=== PATIENT | female | born 1995 | race African-American/Black ===

== ENCOUNTER 2017-04-02 17:14 | Inpatient (IN) | payer BC ==
[2017-04-02] MEDS ORDERED: Sodium Chloride 0.9% 2.5 ML Syringe FLUSH PRN (18:19)
[2017-04-02] MEDS ORDERED: Water For Irrigation,Sterile 1,000 ML Container IRR PRN (18:19)
[2017-04-02] MEDS ORDERED: Methylergonovine 0.2 MG/1 ML Amp IM PRN (18:19)
[2017-04-02] MEDS ORDERED: Nalbuphine 10 MG/1 ML Vial IVPUSH PRN (18:19)
[2017-04-02] MEDS ORDERED: Ampicillin 2 GM in Sodium Chloride 0.9% 100 ML IV ONE (18:19)
[2017-04-02] MEDS ORDERED: Misoprostol 200 MCG Tab PO PRN (18:19)
[2017-04-02] MEDS ORDERED: Carboprost Tromethamine 250 MCG/1 ML Amp IM PRN (18:19)
[2017-04-02] MEDS ORDERED: Butorphanol 1 MG/ML SDV IVPUSH PRN (18:19)
[2017-04-02] MEDS ORDERED: Sodium Chloride 0.9% 10 ML Syringe FLUSH PRN (18:19)
[2017-04-02] MEDS ORDERED: Lidocaine 1% 50 ML MDV INJECT PRN (18:19)
[2017-04-02] MEDS ORDERED: Ampicillin 2 GM AdvVial IV ONE (18:23)
[2017-04-02] MEDS: Lactated Ringers 1,000 ML IV SCH ×3 (18:27→20:12)
[2017-04-02] MEDS ORDERED: Oxytocin/Lactated Ringers 30 UNIT/500 ML BAG IV SCH (18:30)
[2017-04-02] MEDS ORDERED: fentaNYL 100 MCG/2 ML SDV ONE (19:15)
[2017-04-02] MEDS ORDERED: Ropivacaine HCl/PF 100 ML ONE (19:15)
--- NOTE | 2017-04-02 19:27 | PCM.PREANE ---
Preanesthetic Assessment - Anesthesia/Transfusion/Family Hx Anesthesia History: No Prior Anesthesia - Review of Systems General: No Symptoms Pulmonary: No Symptoms Cardiovascular: No Symptoms Gastrointestinal: No symptoms Neurological: No Symptoms Other: Reports: None - Physical Assessment Height: 5 ft 4.5 in Weight: 74.661 kg ASA Class: 2 Mental Status: Alert & Oriented x3 Airway Class: Mallampati = 2 Dentition: Reports: Normal Dentition Thyro-Mental Finger Breadths: 3 Mouth Opening Finger Breadths: 3 ROM/Head Extension: Full Lungs: Clear to auscultation, Normal respiratory effort Cardiovascular: Regular Rate, Regular Rhythm - Lab Values: Laboratory Last Values WBC 6.58 K/uL (4.0-11.0) 04/02/17 18:13 RBC 4.31 M/uL (4.30-5.90) 04/02/17 18:13 Hgb 9.8 g/dL (12.0-16.0) L 04/02/17 18:13 Hct 29.3 % (36.0-46.0) L 04/02/17 18:13 MCV 68.0 fL (80.0-98.0) L 04/02/17 18:13 MCH 22.7 pg (27.0-32.0) L 04/02/17 18:13 MCHC 33.4 g/dL (31.0-37.0) 04/02/17 18:13 RDW Std Deviation 39.0 fl (28.0-62.0) 04/02/17 18:13 RDW Coeff of Carola 16 % (11.0-15.0) H 04/02/17 18:13 Plt Count 210 K/uL (150-400) 04/02/17 18:13 MPV 10.40 fL (7.40-12.00) 04/02/17 18:13 Nucleated RBC % 0.0 /100WBC 04/02/17 18:13 Nucleated RBCs # 0 K/uL 04/02/17 18:13 Membrane Rupture POSITIVE 04/02/17 17:37 Blood Type O POSITIVE 04/02/17 18:13 Antibody Screen NEGATIVE 04/02/17 18:13 - Allergies Allergies/Adverse Reactions: Allergies Allergy/AdvReac Type Severity Reaction Status Date / Time No Known Allergies Allergy Verified 04/02/17 17:23 - Acknowledgements Anesthesia Type Planned: Epidural Pt an Appropriate Candidate for the Planned Anesthesia: Yes Alternatives and Risks of Anesthesia Discussed w Pt/Guardian: Yes Pt/Guardian Understands and Agrees with Anesthesia Plan: Yes PreAnesthesia Questionnaire HEENT History: Reports: None Cardiovascular History: Reports: None Respiratory History: Reports: None Gastrointestinal History: Reports: GERD Genitourinary History: Reports: None 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 Para: 0 LMP (Approximate): Musculoskeletal History: Reports: None Neurological History: Reports: None Psychiatric History: Reports: None Endocrine/Metabolic History: Reports: None Hematologic History: Reports: Anemia Immunologic History: Reports: None Oncologic (Cancer) History: Reports: None Dermatologic History: Reports: None - Infectious Disease History Infectious Disease History: Reports: None - CURRENT (IN HOUSE) MEDS Current Meds: Current Medications Butorphanol Tartrate (Stadol) 1 mg IVPUSH Q1H PRN PRN Reason: Pain Carboprost Tromethamine (Hemabate Ds) 250 mcg IM ASDIRECTED PRN PRN Reason: Post Hemorrhage Lactated Ringer's (Ringers, Lactated) 1,000 mls @ 150 mls/hr IV ASDIRECTED JESENIA Last Admin: 04/02/17 19:07 Dose: 150 mls/hr Ampicillin Sodium 1 gm/ Sodium (Chloride) 50 mls @ 100 mls/hr IV Q4H JESENIA Lidocaine HCl (Xylocaine 1%) 50 ml INJECT .ONCE PRN PRN Reason: Laceration repair Methylergonovine Maleate (Methergine) 0.2 mg IM ASDIRECTED PRN PRN Reason: Post Hemorrhage Misoprostol (Cytotec) 200 mcg PO .ONCE PRN PRN Reason: Post Hemorrhage Nalbuphine HCl (Nubain) 10 mg IVPUSH Q1H PRN PRN Reason: Pain (severe 7-10) Stop: 04/02/17 20:20 Sodium Chloride (Saline Flush) 10 ml FLUSH ASDIRECTED PRN PRN Reason: Keep Vein Open Sodium Chloride (Saline Flush) 2.5 ml FLUSH ASDIRECTED PRN PRN Reason: Keep Vein Open Sterile Water (Sterile Water For Irrigation) 1,000 ml IRR ASDIRECTED PRN PRN Reason: delivery Discontinued Medications Ampicillin Sodium (Ampicillin) Confirm Administered Dose 2 gm IV .STK-MED ONE Stop: 04/02/17 18:24 Fentanyl (Sublimaze) Confirm Administered Dose 100 mcg .ROUTE .STK-MED ONE Stop: 04/02/17 19:16 Ampicillin Sodium 2 gm/ Sodium (Chloride) 100 mls @ 200 mls/hr IV ONETIME ONE Stop: 04/02/17 18:48 Last Admin: 04/02/17 18:27 Dose: 200 mls/hr Oxytocin/Lactated Ringer's (Pitocin In Lr 30 Units/500 Ml) 30 unit in 500 mls @ 999 mls/hr IV ASDIRECTED [facility] PRN Reason: 999 MUNITS/MIN Stop: 04/02/17 19:01 Ropivacaine (Naropin 0.2%) Confirm Administered Dose 100 mls @ as directed .ROUTE .STK-MED ONE Stop: 04/02/17 19:16
[2017-04-02] MEDS ORDERED: Ampicillin 1 GM in Sodium Chloride 0.9% 50 ML IV SCH (22:30)
[2017-04-03] MEDS ORDERED: Oxytocin/Lactated Ringers 30 UNIT/500 ML BAG ONE (00:12)
[2017-04-03] MEDS ORDERED: Acetaminophen 500 MG Tab PO PRN (00:55)
[2017-04-03] MEDS ORDERED: Ibuprofen 400 MG Tab PO PRN (00:55)
[2017-04-03] MEDS ORDERED: Simethicone 80 MG Tab.Chew PO PRN (00:55)
[2017-04-03] MEDS ORDERED: Bisacodyl 10 MG Supp RECTAL PRN (00:55)
[2017-04-03] MEDS ORDERED: Lanolin 100% Cream 7 GM Tube TOP PRN (00:55)
[2017-04-03] MEDS ORDERED: Aluminum Hydroxide/Magnesium Hydroxide/Simethicone Susp 30 ML Cup PO PRN (00:55)
[2017-04-03] MEDS ORDERED: Docusate Sodium 100 MG Cap PO PRN (00:55)
[2017-04-03] MEDS ORDERED: Benzocaine/Menthol 20%-0.5% Spray 78 GM Cannister TOP PRN (00:55)
[2017-04-03] MEDS ORDERED: Witch Hazel Medicated Pads 40/Jar TOP PRN (00:55)
--- NOTE | 2017-04-03 02:28 | OR ---
SURGEON: Radha Sorto M.D. DATE OF PROCEDURE: 04/03/2017 PREOPERATIVE DIAGNOSES: 1. A 39 and 1-week intrauterine . 2. Active labor and spontaneous rupture of membranes. 3. Group B beta strep positive. POSTOPERATIVE DIAGNOSES: 1. A 39 and 1-week intrauterine . 2. Active labor and spontaneous rupture of membranes. 3. Group B beta strep positive. PROCEDURES PERFORMED: Spontaneous vaginal delivery. Second-degree midline laceration was repaired. ANESTHESIA: Epidural. ESTIMATED BLOOD LOSS: 300 mL. FINDINGS: Term female. Apgars of nine at 1 minute and nine at 5 minutes. Weight is pending. Spontaneous delivery of intact placenta and three-vessel cord. DISPOSITION: to [facility] and Mom in [facility], stable. PROCEDURE DETAILS: Mehdi is a 21-year-old, G1, P0, at 39 weeks' gestation. She was admitted on the evening of 04/02/2017 with contractions since the evening before they became much more intense in nature, and spontaneous leakage of fluid shortly after 3 p.m. Upon her presentation, she was found to be 8 cm to 9 cm dilated, 90% effaced, and -1 station. Therefore, she was admitted. Routine labs were drawn. Ampicillin prophylaxis was initiated. heart tones were 120s with variability, Yasir is 3200 g in cephalic presentation. The patient is requesting regional anesthesia in the form of epidural anesthesia, this has been consulted. The patient underwent regional anesthesia satisfactorily, became more comfortable, and progressed to complete. She was allowed to labor, and then when began feeling pressure, began pushing efforts. There were some early decelerations with occasional variable decelerations with the pushing efforts, which were alleviated to a degree with positional changes with pushing. She was able to push to a +4 station. Upon my arrival, the patient was placed in a modified dorsal lithotomy position, and prepped and draped in the usual aseptic manner. With continued pushing efforts and pushing satisfactorily to a +5 station, she was able to deliver the infant's head atraumatically and spontaneously, followed by anterior shoulder, posterior shoulder, and remainder of body without difficulty. Body cord x1 was reduced manually. The was delivered in direct OP position. The infant's oropharynx and nares were bulb suctioned. Cord was clamped x2 and cut. Infant was handed off to her mother with attending and Nursing staff at her side. Cord arterial, cord venous, and cord blood sampling were obtained. Light suprapubic pressure was applied while the placenta was delivered spontaneously intact. Vigorous fundal uterine massage was then applied while 30 units of Pitocin was delivered in 500 mL of IV fluid. Upon inspection of the cervix, vaginal sidewalls, and perineum, there was found to be a second-degree midline laceration present. This was repaired using 3-0 Vicryl in the usual fashion. Hemostasis remained evident. Uterus remained firm. Sponge count and needle counts were correct. The patient will remain in [facility] and in [facility]. FABI / JENNY /[id number]
--- NOTE | 2017-04-03 07:42 | PCM48HPAN ---
Post Anesthesia Note - EVALUATION WITHIN 48HRS OF ANESTHETIC Vital Signs in Normal Range: Yes Patient Participated in Evaluation: Yes Respiratory Function Stable: Yes Airway Patent: Yes Cardiovascular Function Stable: Yes Hydration Status Stable: Yes Pain Control Satisfactory: Yes Nausea and Vomiting Control Satisfactory: Yes Mental Status Recovered: Yes
[2017-04-03] MEDS: oxyCODONE 5 MG Tab PO PRN ×3 (09:08→23:00)
[2017-04-03] MEDS: Acetaminophen 500 MG Tab PO PRN ×2 (09:08→14:31)
--- NOTE | 2017-04-03 09:50 | PCM.PNPP ---
- General Info Date of Service: 04/03/17 Subjective Update: Patient is doing well overall--ambulating, voiding, lochia is appropriate. Denies lightheadedness. Pain controlled overall. . Functional Status: Reports: pain controlled, tolerating diet, ambulating, urinating - Review of Systems General: Denies: Fever, Weakness Cardiovascular: Denies: Chest Pain, Palpitations, Lightheadedness Gastrointestinal: Reports: Flatus. Denies: Nausea, Vomiting Genitourinary: Denies: flank pain Psychiatric: Reports: no symptoms - General Info Date of Service: 04/03/17 - Patient Data Vital Signs - most recent: Last Vital Signs Temp 36.9 C 04/03/17 04:00 Pulse 93 04/03/17 04:00 Resp 16 04/03/17 04:00 BP 91/47 L 04/03/17 04:00 Pulse Ox 96 04/03/17 04:00 Weight - most recent: 74.661 kg Lab Results - last 24 hrs: Laboratory Results - last 24 hr 04/02/17 04/02/17 04/02/17 Range/Units 17:37 18:13 18:13 WBC 6.58 (4.0-11.0) K/uL RBC 4.31 (4.30-5.90) M/uL Hgb 9.8 L (12.0-16.0) g/dL Hct 29.3 L (36.0-46.0) % MCV 68.0 L (80.0-98.0) fL MCH 22.7 L (27.0-32.0) pg MCHC 33.4 (31.0-37.0) g/dL RDW Std Deviation 39.0 (28.0-62.0) fl RDW Coeff of Carola 16 H (11.0-15.0) % Plt Count 210 (150-400) K/uL MPV 10.40 (7.40-12.00) fL Nucleated RBC % 0.0 /100WBC Nucleated RBCs # 0 K/uL Membrane Rupture POSITIVE Blood Type O POSITIVE Antibody Screen NEGATIVE Med Orders - Current: Current Medications Acetaminophen (Tylenol Extra Strength) 500 mg PO Q4H PRN PRN Reason: Pain Acetaminophen (Tylenol Extra Strength) 1,000 mg PO Q4H PRN PRN Reason: Pain Last Admin: 04/03/17 09:08 Dose: 1,000 mg Al Hydroxide/Mg Hydroxide (Mag-Al Plus) 30 ml PO Q8H PRN PRN Reason: Heartburn Benzocaine/Menthol (Dermoplast Pain Relief 20%-0.5% [address]) 78 gm TOP ASDIRECTED PRN PRN Reason: Perineal Comfort Measure Bisacodyl (Dulcolax) 10 mg RECTAL .ONCE PRN PRN Reason: Constipation Docusate Sodium (Colace) 100 mg PO BID PRN PRN Reason: Constipation Emollient Ointment (Lansinoh Hpa) 0 gm TOP ASDIRECTED PRN PRN Reason: Sore Nipples Lactated Ringer's (Ringers, Lactated) 1,000 mls @ 150 mls/hr IV ASDIRECTED JESENIA Last Admin: 04/02/17 20:12 Dose: 150 mls/hr Ibuprofen (Motrin) 400 mg PO Q4H PRN PRN Reason: Pain Ibuprofen (Motrin) 800 mg PO Q6H PRN PRN Reason: Pain Methylergonovine Maleate (Methergine) 0.2 mg IM ASDIRECTED PRN PRN Reason: Post Hemorrhage Misoprostol (Cytotec) 200 mcg PO .ONCE PRN PRN Reason: Post Hemorrhage Oxycodone HCl (Oxycodone) 5 mg PO Q2H PRN PRN Reason: Pain Last Admin: 04/03/17 09:08 Dose: 5 mg Simethicone (Simethicone) 80 mg PO Q4H PRN PRN Reason: Gas Sodium Chloride (Saline Flush) 2.5 ml FLUSH ASDIRECTED PRN PRN Reason: Keep Vein Open Witch Michelle (Tucks) 1 pad TOP ASDIRECTED PRN PRN Reason: comfort care Last Admin: 04/03/17 03:00 Dose: 1 pad Discontinued Medications Ampicillin Sodium (Ampicillin) Confirm Administered Dose 2 gm IV .STK-MED ONE Stop: 04/02/17 18:24 Last Admin: 04/03/17 03:25 Dose: Not Given Butorphanol Tartrate (Stadol) 1 mg IVPUSH Q1H PRN PRN Reason: Pain Carboprost Tromethamine (Hemabate Ds) 250 mcg IM ASDIRECTED PRN PRN Reason: Post Hemorrhage Fentanyl (Sublimaze) Confirm Administered Dose 100 mcg .ROUTE .STK-MED ONE Stop: 04/02/17 19:16 Ampicillin Sodium 2 gm/ Sodium (Chloride) 100 mls @ 200 mls/hr IV ONETIME ONE Stop: 04/02/17 18:48 Last Admin: 04/02/17 18:27 Dose: 200 mls/hr Oxytocin/Lactated Ringer's (Pitocin In Lr 30 Units/500 Ml) 30 unit in 500 mls @ 999 mls/hr IV ASDIRECTED JESENIA PRN Reason: 999 MUNITS/MIN Stop: 04/02/17 19:01 Last Admin: 04/03/17 00:45 Dose: 999 munits/min, 999 mls/hr Ampicillin Sodium 1 gm/ Sodium (Chloride) 50 mls @ 100 mls/hr IV Q4H [facility] Last Admin: 04/02/17 22:45 Dose: 100 mls/hr Ropivacaine (Naropin 0.2%) Confirm Administered Dose 100 mls @ as directed .ROUTE .STK-MED ONE Stop: 04/02/17 19:16 Oxytocin/Lactated Ringer's (Pitocin In Lr 30 Units/500 Ml) Confirm Administered Dose 30 unit in 500 mls @ as directed .ROUTE .STK-MED ONE Stop: 04/03/17 00:13 Last Admin: 04/03/17 03:26 Dose: Not Given Lidocaine HCl (Xylocaine 1%) 50 ml INJECT .ONCE PRN PRN Reason: Laceration repair Nalbuphine HCl (Nubain) 10 mg IVPUSH Q1H PRN PRN Reason: Pain (severe 7-10) Stop: 04/02/17 20:20 Sodium Chloride (Saline Flush) 10 ml FLUSH ASDIRECTED PRN PRN Reason: Keep Vein Open Sterile Water (Sterile Water For Irrigation) 1,000 ml IRR ASDIRECTED PRN PRN Reason: delivery Last Admin: 04/03/17 00:15 Dose: 1,000 ml - Infant Interaction Infant Disposition, : in Room with Family Interaction: Holding Infant Feeding: Breastfed ; Nursed Well Support Person: Significant Other - Recovery Exam Fundal Tone: Firm Fundal Level: At Umbilicus Fundal Placement: Midline Lochia Amount: Scant Lochia Color: Rubra/Red Perineum Description: Intact, Minimal Bruising/Swelling Episiotomy/Laceration: Approximated Bladder Status: Nonpalpable Urinary Elimination: Voided - Exam General: alert, oriented Lungs: Normal respiratory effort Cardiovascular: Regular Rate, Regular Rhythm Abdomen: bowel sounds present, soft. No: CVA tenderness Extremities: no calf tenderness Psy/Mental Status: alert, normal affect - Problem List & Annotations (1) Vaginal delivery SNOMED Code(s): 820787133 Code(s): O80 - ENCOUNTER FOR FULL-TERM UNCOMPLICATED DELIVERY Status: Acute Current Visit: Yes - Problem List Review Problem List Initiated/Reviewed/Updated: Yes - My Orders Last 24 Hours: My Active Orders 04/02/17 18:19 Patient Status [ADT] Routine Heart Tones [RC] CONTINUOUS Vaginal Exam [RC] PRN Vital Signs [RC] PER UNIT ROUTINE Methylergonovine [Methergine] 0.2 mg IM ASDIRECTED PRN Misoprostol [Cytotec] 200 mcg PO .ONCE PRN Sodium Chloride 0.9% [Saline Flush] 2.5 ml FLUSH ASDIRECTED PRN Peripheral IV Insertion Adult [OM.PC] Routine Resuscitation Status Routine 04/02/17 18:30 Lactated Ringers [Ringers, Lactated] 1,000 ml IV ASDIRECTED 04/03/17 00:55 Patient Status [ADT] Routine May Shower [RC] ASDIRECTED Up ad Ruth [RC] ASDIRECTED Vital Signs [RC] PER UNIT ROUTINE Acetaminophen [Tylenol Extra Strength] 1,000 mg PO Q4H PRN Acetaminophen [Tylenol Extra Strength] 500 mg PO Q4H PRN Alum Hydrox/Mag Hydrox/Simeth [Mag-Al Plus] 30 ml PO Q8H PRN Benzocaine/Menthol [Dermoplast Pain Relief 20%-0.5% [address]] 78 gm TOP ASDIRECTED PRN Bisacodyl [Dulcolax] 10 mg RECTAL .ONCE PRN Docusate Sodium [Colace] 100 mg PO BID PRN Ibuprofen [Motrin] 400 mg PO Q4H PRN Ibuprofen [Motrin] 800 mg PO Q6H PRN Lanolin [Lansinoh HPA] See Dose Instructions TOP ASDIRECTED PRN Simethicone 80 mg PO Q4H PRN Witch Michelle [Tucks] 1 pad TOP ASDIRECTED PRN oxyCODONE 5 mg PO Q2H PRN Assess Lochia [WOMSER] Per Unit Routine Assess Uterine Involution [WOMSER] Per Unit Routine Peripheral IV Discontinue [OM.PC] Routine 04/03/17 00:56 Ice Therapy [OM.PC] Per Unit Routine Perineal Care [OM.PC] Per Unit Routine Sitz Bath [OM.PC] Per Unit Routine 04/03/17 12:11 HEMOGLOBIN/HEMATOCRIT,HH [HEME] Timed 04/03/17 Breakfast Regular Diet [DIET] - Assessment Assessment:: PPD 1 status post /2nd MLL repaired - Plan Plan:: Patient is stable and doing well overall--continue to work with . Continue cares.
[2017-04-03] MEDS: Ibuprofen 800 MG Tab PO PRN (23:02)
[2017-04-04] MEDS: Ibuprofen 800 MG Tab PO PRN (07:37)
[2017-04-04 07:42] VITALS: BP 103/72
--- NOTE | 2017-04-04 09:07 | PCM.PNPP ---
- General Info Date of Service: 04/04/17 Functional Status: Reports: pain controlled, tolerating diet, ambulating, urinating - Review of Systems General: Denies: Fever, Weakness, Fatigue, Malaise, Chills Pulmonary: Denies: shortness of breath, pleuritic chest pain, cough Cardiovascular: Denies: Chest Pain, Palpitations, Dyspnea on Exertion Gastrointestinal: Denies: Abdominal pain Genitourinary: Denies: dysuria, burning, incontinence Neurological: Denies: Headache Psychiatric: Denies: confusion, depression, mood lability - General Info Date of Service: 04/04/17 - Patient Data Vital Signs - most recent: Last Vital Signs Temp 36.6 C 04/04/17 07:00 Pulse 75 04/04/17 07:00 Resp 16 04/04/17 07:00 BP 103/72 04/04/17 07:00 Pulse Ox 98 04/04/17 07:00 Weight - most recent: 164 lb 9.6 oz Lab Results - last 24 hrs: Laboratory Results - last 24 hr 04/03/17 Range/Units 12:26 Hgb 9.5 L (12.0-16.0) g/dL Hct 28.3 L (36.0-46.0) % Med Orders - Current: Current Medications Acetaminophen (Tylenol Extra Strength) 500 mg PO Q4H PRN PRN Reason: Pain Acetaminophen (Tylenol Extra Strength) 1,000 mg PO Q4H PRN PRN Reason: Pain Last Admin: 04/03/17 14:31 Dose: 1,000 mg Al Hydroxide/Mg Hydroxide (Mag-Al Plus) 30 ml PO Q8H PRN PRN Reason: Heartburn Benzocaine/Menthol (Dermoplast Pain Relief 20%-0.5% [place]) 78 gm TOP ASDIRECTED PRN PRN Reason: Perineal Comfort Measure Bisacodyl (Dulcolax) 10 mg RECTAL .ONCE PRN PRN Reason: Constipation Docusate Sodium (Colace) 100 mg PO BID PRN PRN Reason: Constipation Emollient Ointment (Lansinoh Hpa) 0 gm TOP ASDIRECTED PRN PRN Reason: Sore Nipples Last Admin: 04/03/17 20:37 Dose: 7 gm Lactated Ringer's (Ringers, Lactated) 1,000 mls @ 150 mls/hr IV ASDIRECTED JESENIA Last Admin: 04/02/17 20:12 Dose: 150 mls/hr Ibuprofen (Motrin) 400 mg PO Q4H PRN PRN Reason: Pain Ibuprofen (Motrin) 800 mg PO Q6H PRN PRN Reason: Pain Last Admin: 04/04/17 07:37 Dose: 800 mg Methylergonovine Maleate (Methergine) 0.2 mg IM ASDIRECTED PRN PRN Reason: Post Hemorrhage Misoprostol (Cytotec) 200 mcg PO .ONCE PRN PRN Reason: Post Hemorrhage Oxycodone HCl (Oxycodone) 5 mg PO Q2H PRN PRN Reason: Pain Last Admin: 04/03/17 23:00 Dose: 5 mg Simethicone (Simethicone) 80 mg PO Q4H PRN PRN Reason: Gas Sodium Chloride (Saline Flush) 2.5 ml FLUSH ASDIRECTED PRN PRN Reason: Keep Vein Open Witch Michelle (Tucks) 1 pad TOP ASDIRECTED PRN PRN Reason: comfort care Last Admin: 04/03/17 03:00 Dose: 1 pad Discontinued Medications Ampicillin Sodium (Ampicillin) Confirm Administered Dose 2 gm IV .STK-MED ONE Stop: 04/02/17 18:24 Last Admin: 04/03/17 03:25 Dose: Not Given Butorphanol Tartrate (Stadol) 1 mg IVPUSH Q1H PRN PRN Reason: Pain Carboprost Tromethamine (Hemabate Ds) 250 mcg IM ASDIRECTED PRN PRN Reason: Post Hemorrhage Fentanyl (Sublimaze) Confirm Administered Dose 100 mcg .ROUTE .STK-MED ONE Stop: 04/02/17 19:16 Ampicillin Sodium 2 gm/ Sodium (Chloride) 100 mls @ 200 mls/hr IV ONETIME ONE Stop: 04/02/17 18:48 Last Admin: 04/02/17 18:27 Dose: 200 mls/hr Oxytocin/Lactated Ringer's (Pitocin In Lr 30 Units/500 Ml) 30 unit in 500 mls @ 999 mls/hr IV ASDIRECTED JESENIA PRN Reason: 999 MUNITS/MIN Stop: 04/02/17 19:01 Last Admin: 04/03/17 00:45 Dose: 999 munits/min, 999 mls/hr Ampicillin Sodium 1 gm/ Sodium (Chloride) 50 mls @ 100 mls/hr IV Q4H [facility] Last Admin: 04/02/17 22:45 Dose: 100 mls/hr Ropivacaine (Naropin 0.2%) Confirm Administered Dose 100 mls @ as directed .ROUTE .STK-MED ONE Stop: 04/02/17 19:16 Oxytocin/Lactated Ringer's (Pitocin In Lr 30 Units/500 Ml) Confirm Administered Dose 30 unit in 500 mls @ as directed .ROUTE .STK-MED ONE Stop: 04/03/17 00:13 Last Admin: 04/03/17 03:26 Dose: Not Given Lidocaine HCl (Xylocaine 1%) 50 ml INJECT .ONCE PRN PRN Reason: Laceration repair Nalbuphine HCl (Nubain) 10 mg IVPUSH Q1H PRN PRN Reason: Pain (severe 7-10) Stop: 04/02/17 20:20 Sodium Chloride (Saline Flush) 10 ml FLUSH ASDIRECTED PRN PRN Reason: Keep Vein Open Sterile Water (Sterile Water For Irrigation) 1,000 ml IRR ASDIRECTED PRN PRN Reason: delivery Last Admin: 04/03/17 00:15 Dose: 1,000 ml - Infant Interaction Disposition, : in Room with Family Interaction: Holding Infant Infant Feeding: Breastfed ; Nursed Well Support Person: Significant Other - Recovery Exam Fundal Tone: Firm Fundal Level: At Umbilicus Fundal Placement: Midline Lochia Amount: Small Lochia Color: Rubra/Red Perineum Description: Intact, Minimal Bruising/Swelling Episiotomy/Laceration: Approximated Bladder Status: Voiding Urinary Elimination: Voided - Exam General: alert, oriented HEENT: Pupils equal Lungs: Clear to auscultation, Normal respiratory effort Cardiovascular: Regular Rate, Regular Rhythm Abdomen: bowel sounds present, soft, no tenderness, no distension Extremities: no calf tenderness, edema Psy/Mental Status: alert, normal affect, normal mood - Problem List & Annotations (1) Vaginal delivery SNOMED Code(s): 285433328 Code(s): O80 - ENCOUNTER FOR FULL-TERM UNCOMPLICATED DELIVERY Status: Acute Current Visit: Yes - Problem List Review Problem List Initiated/Reviewed/Updated: Yes - Assessment Assessment:: PPD 1 status post /2nd MLL repaired Patient doing well and ready fro discharge today - Plan Plan:: Discharge instructions reviewed Nothing in the vagina for 6 weeks Continue PNV Bleeding and infections precautions reviewed Follow up in 6 weeks
== END 2017-04-04 12:15 | disposition home or self-care (01) | DRG 560 ==
LOC: MW.OBCHECK 17:14 → MW.OB 17:27 → MW.OBCHECK 18:19 → OBSVTOIN 04-03 00:38 → MW.OB 04-03 03:00
PROVIDERS: ADMIT Obstetrics & Gynecology; ATTEND Obstetrics & Gynecology
PROC: 10E0XZZ Delivery of Products of Conception, External Approach (ICD-10-PCS; principal; 2017-04-03)
PROC: 0KQM0ZZ Repair Perineum Muscle, Open Approach (ICD-10-PCS; 2017-04-03)
DX: O70.1 Second degree perineal laceration during delivery (principal); Z3A.39 39 weeks gestation of pregnancy; Z37.0 Single live birth; Z22.330 Carrier of Group B streptococcus
CPT/HCPCS: 01967; 36415; 59025; 84112; 85014; 85018; 85027; 86850; 86900; 86901; A9270-GY; J0290; J2795; J3010; J7030; J7050; J7120

== ENCOUNTER 2020-04-17 23:30 | Emergency (ER) | payer OTHER, BC ==
--- NOTE | 2020-04-18 00:42 | EDM.PDOC ---
ED HPI GENERAL MEDICAL PROBLEM - General Chief Complaint: General Stated Complaint: LOWER BACK PAIN Time Seen by Provider: 04/17/20 23:39 Abdominal Pain Score (Numeric/FACES): 9 - Related Data Allergies Allergy/AdvReac Type Severity Reaction Status Date / Time No Known Allergies Allergy Verified 04/17/20 23:42 Home Meds: Home Meds . 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: Musculoskeletal History: Reports: None Neurological History: Reports: None Psychiatric History: Reports: None Endocrine/Metabolic History: Reports: None Hematologic History: Reports: Anemia Immunologic History: Reports: None Oncologic (Cancer) History: Reports: None Dermatologic History: Reports: None - Infectious Disease History Infectious Disease History: Reports: None Social & Family History - Family History Family Medical History: Noncontributory - Tobacco Use Smoking Status *Q: Never Smoker Second Hand Smoke Exposure: No - Caffeine Use Caffeine Use: Reports: None - Recreational Drug Use Recreational Drug Use: No ED ROS GENERAL - Review of Systems Review Of Systems: See Below ED EXAM, GENERAL - Physical Exam Exam: See Below Course - Vital Signs Last Recorded V/S: Last Vital Signs Temp 98.1 F 04/17/20 23:39 Pulse 90 04/17/20 23:39 Resp 18 04/17/20 23:39 BP 120/76 04/17/20 23:39 Pulse Ox 99 04/17/20 23:39 - Orders/Labs/Meds Orders: Active Orders 24 hr Category Date Time Status POCTesting [POC Labs] [RC] ASDIRECTED Care 04/17/20 23:46 Inactive KUB [Abdomen 1V Flat] [CR] Stat Exams 04/18/20 00:40 Ordered Labs: Laboratory Tests 04/17/20 04/17/20 04/17/20 Range/Units 23:45 23:45 23:58 WBC 6.67 (4.0-11.0) K/uL RBC 4.97 (4.30-5.90) M/uL Hgb 12.9 (12.0-16.0) g/dL Hct 37.5 (36.0-46.0) % MCV 75.5 L (80.0-98.0) fL MCH 26.0 L (27.0-32.0) pg MCHC 34.4 (31.0-37.0) g/dL RDW Std Deviation 35.3 (28.0-62.0) fl RDW Coeff of Carola 13 (11.0-15.0) % Plt Count 292 (150-400) K/uL MPV 9.20 (7.40-12.00) fL Neut % (Auto) 44.9 L (48.0-80.0) % Lymph % (Auto) 42.9 H (16.0-40.0) % [place] % (Auto) 6.7 (0.0-15.0) % Eos % (Auto) 4.6 (0.0-7.0) % Baso % (Auto) 0.9 (0.0-1.5) % Neut # (Auto) 3.0 (1.4-5.7) K/uL Lymph # (Auto) 2.9 H (0.6-2.4) K/uL [place] # (Auto) 0.5 (0.0-0.8) K/uL Eos # (Auto) 0.3 (0.0-0.7) K/uL Baso # (Auto) 0.1 (0.0-0.1) K/uL Nucleated RBC % 0.0 /100WBC Nucleated RBCs # 0 K/uL Urine Color YELLOW Urine Appearance CLEAR Urine pH 6.0 (5.0-8.0) Ur Specific [place] 1.015 (1.001-1.035) Urine Protein NEGATIVE (NEGATIVE) mg/dL Urine Glucose (UA) NEGATIVE (NEGATIVE) mg/dL Urine Ketones NEGATIVE (NEGATIVE) mg/dL Urine Occult Blood NEGATIVE (NEGATIVE) Urine Nitrite NEGATIVE (NEGATIVE) Urine Bilirubin NEGATIVE (NEGATIVE) Urine Urobilinogen 0.2 (<2.0) EU/dL Ur Leukocyte Esterase NEGATIVE (NEGATIVE) Urine HCG, Qual NEGATIVE (NEGATIVE) Meds: Medications Discontinued Medications Generic Name Dose Route Start Last Admin Trade Name Freq PRN Reason Stop Dose Admin Naproxen 500 mg 04/18/20 00:44 04/18/20 00:48 Naprosyn PO 04/18/20 00:45 500 mg ONETIME ONE Administration - Re-Assessments/Exams Free Text/Narrative Re-Assessment/Exam: 04/18/20 00:41 80 12:41 AM bimanual exam. Not able to definitively find enough of the string to be sure that the IUD is in position. Uterus is slightly tender adnexa are nontender no masses. KUB ordered for position of the IUD. Departure - Departure Time of Disposition: 00:55 Disposition: Home, Self-Care 01 Clinical Impression: Pelvic pain - Discharge Information Referrals: Bud Spring MD [Primary Care Provider] - Forms: ED Department Discharge Additional Instructions: The following information is given to patients seen in the emergency department who are being discharged to home. This information is to outline your options for follow-up care. We provide all patients seen in our emergency department with a follow-up referral. The need for follow-up, as well as the timing and circumstances, are variable depending upon the specifics of your emergency department visit. If you don't have a primary care physician on staff, we will provide you with a referral. We always advise you to contact your personal physician following an emergency department visit to inform them of the circumstance of the visit and for follow-up with them and/or the need for any referrals to a consulting specialist. The emergency department will also refer you to a specialist when appropriate. This referral assures that you have the opportunity for follow-up care with a specialist. All of these measure are taken in an effort to provide you with optimal care, which includes your follow-up. Under all circumstances we always encourage you to contact your private physician who remains a resource for coordinating your care. When calling for follow-up care, please make the office aware that this follow-up is from your recent emergency room visit. If for any reason you are refused follow-up, please contact the [facility] Emergency Department at and asked to speak to the emergency department charge nurse. Sepsis Event Note - Evaluation Sepsis Screening Result: No Definite Risk - Focused Exam Vital Signs: Vital Signs Temp Pulse Resp BP Pulse Ox 04/17/20 23:39 98.1 F 90 18 120/76 99 Date Exam was Performed: 04/18/20 Time Exam was Performed: 00:55 - My Orders Last 24 Hours: My Active Orders 04/17/20 23:46 POCTesting [POC Labs] [RC] ASDIRECTED 04/18/20 00:40 KUB [Abdomen 1V Flat] [CR] Stat - Assessment/Plan Last 24 Hours: My Active Orders 04/17/20 23:46 POCTesting [POC Labs] [RC] ASDIRECTED 04/18/20 00:40 KUB [Abdomen 1V Flat] [CR] Stat
[2020-04-18] MEDS ORDERED: Naproxen 500 MG Tab PO ONE (00:44)
[2020-04-18 01:07] VITALS: BP 123/77; PULSE 97
--- NOTE | 2020-04-18 01:13 | CR ---
INDICATION: Pain with IUD TECHNIQUE: Abdomen 1 view. COMPARISON: None FINDINGS: Bowel: Bowel pattern is normal. Soft tissues: No sign of free air. No sign of soft tissue mass. No suspicious calcifications. IUD projects over the mid pelvis. Bones: Unremarkable for age. IMPRESSION: Unremarkable abdomen. IUD projects over the mid abdomen. Dictated by Gavin Alba MD @ 04/18/2020 1:12:12 AM Dictated by: Gavin Alba MD @ 04/18/2020 01:12:15 (Electronically Signed)
== END 2020-04-18 01:07 | disposition home or self-care (01) ==
LOC: MW.ED 23:30
DX: R10.2 Pelvic and perineal pain (principal)
CPT/HCPCS: 36415; 74018; 81003; 81025; 85025; 99284; A9270; 99283

== ENCOUNTER 2021-11-18 01:54 | Inpatient (IN) | payer BC ==
--- NOTE | 2021-11-18 02:03 | PCM.LDHP ---
L&D History of Present Illness - General Date of Service: 11/18/21 Admit Problem/Dx: Admission Diagnosis/Problem Admission Diagnosis/Problem - History of Present Illness Introduction:: 26yo at 38w4d EMILI 11/28/2020 by LMP confirmed with 8 week 6 day US presenting with rupture of membranes. Patient had care with [facility]. Patient reports having a large gush of clear fluid around 0122 tonight, having regular contraction every 1-3min as well. She is GBS negative. was otherwise uncomplicated. - Related Data Allergies/Adverse Reactions: Allergies Allergy/AdvReac Type Severity Reaction Status Date / Time No Known Allergies Allergy Verified 04/17/20 23:42 Home Medications: Home Meds . 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: Musculoskeletal History: Reports: None Neurological History: Reports: None Psychiatric History: Reports: None Endocrine/Metabolic History: Reports: None Hematologic History: Reports: Anemia Immunologic History: Reports: None Oncologic (Cancer) History: Reports: None Dermatologic History: Reports: None - Infectious Disease History Infectious Disease History: Reports: None Social & Family History - Family History Family Medical History: No Pertinent Family History - Caffeine Use Caffeine Use: Reports: None H&P Review of Systems - Review of Systems: Review Of Systems: See Below General: Reports: No Symptoms HEENT: Reports: No Symptoms Pulmonary: Reports: No Symptoms Cardiovascular: Reports: No Symptoms Gastrointestinal: Reports: No Symptoms Genitourinary: Reports: Other (leakage of fluid, contractions) Musculoskeletal: Reports: No Symptoms Skin: Reports: No Symptoms Psychiatric: Reports: No Symptoms Neurological: Reports: No Symptoms Hematologic/Lymphatic: Reports: No Symptoms Immunologic: Reports: No Symptoms L&D Exam - Exam Exam: See Below - OB Specific Contraction Intensity: Moderate Movement: Active Heart Tones: Present Heart Tones per Min: 110 Heart Rate (FHR) Variability: Moderate (6-25 bpm) Presentation: Vertex - Exam General: Alert, Oriented, Cooperative HEENT: Conjunctiva Clear, EACs Clear Neck: Supple, Trachea Midline Lungs: Clear to Auscultation, Normal Respiratory Effort Cardiovascular: Regular Rate, Regular Rhythm GI/Abdominal Exam: Normal Bowel Sounds, Soft, Non-Tender, No Distention Genitourinary: Other (7cm dilated per patient nurse, grossly ruptured with clear fluid) Back Exam: Normal Inspection, Full Range of Motion Extremities: Normal Inspection, Normal Range of Motion, Non-Tender, No Pedal Edema Skin: Warm, Dry, Intact Neurological: Cranial Nerves Intact, Reflexes Equal Bilateral Psychiatric: Alert, Normal Affect, Normal Mood Problem List Initiated/Reviewed/Updated: Yes Assessment/Plan Comment:: 26yo at 38w5d presenting with SROM and active labor. Reassuring maternal and status. - Patient of [facility] - Grossly ruptured with clear fluid at 0122, 7cm dilated. - Will admit to L&D, CBC, T&S, RPR, COVID19 test - O+, rubella immune - GBS negative - Pain meds and epidural PRN Expectant management, will monitor closely
[2021-11-18] MEDS ORDERED: Methylergonovine 0.2 MG/1 ML Amp IM PRN (02:28)
[2021-11-18] MEDS ORDERED: Misoprostol 200 MCG Tab PO PRN (02:28)
[2021-11-18] MEDS ORDERED: Sodium Chloride 0.9% 10 ML Syringe FLUSH PRN (02:28)
[2021-11-18] MEDS ORDERED: Lidocaine 1% 50 ML MDV INJECT PRN (02:28)
[2021-11-18] MEDS ORDERED: Nalbuphine 10 MG/1 ML Vial IVPUSH PRN (02:28)
[2021-11-18] MEDS ORDERED: Butorphanol 1 MG/ML SDV IVPUSH PRN (02:28)
[2021-11-18] MEDS ORDERED: Carboprost Tromethamine 250 MCG/1 ML Amp IM PRN (02:28)
[2021-11-18] MEDS ORDERED: Tranexamic Acid 1,000 MG in Sodium Chloride 0.9% 100 ML IV PRN (02:28)
[2021-11-18] MEDS ORDERED: Sodium Chloride 0.9% 2.5 ML Syringe FLUSH PRN (02:28)
[2021-11-18] MEDS ORDERED: Ondansetron 4 MG/2 ML SDV IVPUSH PRN (02:28)
[2021-11-18] MEDS ORDERED: Water For Irrigation,Sterile 1,000 ML Container IRR PRN (02:28)
[2021-11-18] MEDS ORDERED: Sodium Chloride 0.9% 20 ML SDV IV PRN (02:28)
[2021-11-18] MEDS ORDERED: Lactated Ringers 1,000 ML IV SCH (02:30)
[2021-11-18] MEDS ORDERED: Oxytocin/0.9 % Sodium Chloride 30 UNIT/500 ML BAG IV SCH (02:30)
[2021-11-18] MEDS ORDERED: Ropivacaine HCl/PF 0 ML ONE (03:21)
[2021-11-18] MEDS ORDERED: fentaNYL 100 MCG/2 ML SDV ONE (03:37)
[2021-11-18] MEDS ORDERED: Lidocaine 2% 5 ML SDV ONE (03:37)
[2021-11-18] MEDS ORDERED: Lidocaine 1% 20 ML MDV ONE (03:43)
[2021-11-18] MEDS ORDERED: Ibuprofen 400 MG Tab PO PRN (04:04)
[2021-11-18] MEDS ORDERED: Bisacodyl 10 MG Supp RECTAL PRN (04:04)
[2021-11-18] MEDS ORDERED: oxyCODONE 5 MG Tab PO PRN (04:04)
[2021-11-18] MEDS ORDERED: Lanolin 100% Cream 7 GM Tube TOP PRN (04:04)
[2021-11-18] MEDS ORDERED: Benzocaine/Menthol 20%-0.5% Spray 78 GM Cannister TOP PRN (04:04)
[2021-11-18] MEDS ORDERED: Acetaminophen 500 MG Tab PO PRN ×2 (04:04)
[2021-11-18] MEDS ORDERED: Ibuprofen 800 MG Tab PO PRN (04:04)
[2021-11-18] MEDS ORDERED: Docusate Sodium 100 MG Cap PO PRN (04:04)
[2021-11-18] MEDS ORDERED: Witch Hazel Medicated Pads 40/Jar TOP PRN (04:04)
--- NOTE | 2021-11-18 04:13 | PCM.DEL ---
L & D Note - General Info Date of Service: 11/18/21 - Delivery Note Labor: Spontaneous Delivery Outcome: Livebirth Presentation: Vertex Nuchal Cord: None Anesthesia Type: Epidural, Local Anesthetic: Lidocaine (Xylocaine) 1% Plain Local Anesthetic Volume: Other (7cc) Amniotic Fluid Description: Clear Episiotomy Type: None Laceration: 2nd Degree Suture type: Vicryl Suture size: 3-0 Placenta: Intact, Spontaneous Cord: 3 Vessels Estimated Blood Loss: 300 Resuscitation Needed: No Provider: Rupa Juarez Second Stage Interventions: Reports: Pushing Effectively Delivery Comments (Free Text/Narrative):: 26yo PPD0 s/p uncomplicatd at 38w5d, routine care. - General Info Date of Service: 11/18/21 - Patient Data Weight - Most Recent: 186 lb Lab Results Last 24 Hours: Laboratory Results - last 24 hr 11/18/21 11/18/21 11/18/21 Range/Units 02:15 02:15 02:25 WBC 8.79 (4.0-11.0) K/uL RBC 4.28 L (4.30-5.90) M/uL Hgb 11.0 L (12.0-16.0) g/dL Hct 31.5 L (36.0-46.0) % MCV 73.6 L (80.0-98.0) fL MCH 25.7 L (27.0-32.0) pg MCHC 34.9 (31.0-37.0) g/dL RDW Std Deviation 36.5 (28.0-62.0) fl RDW Coeff of Carola 14 (11.0-15.0) % Plt Count 214 (150-400) K/uL MPV 10.80 (7.40-12.00) fL Nucleated RBC % 0.0 /100WBC Nucleated RBCs # 0 K/uL SARS-CoV-2 RNA (CATIE) NEGATIVE (NEGATIVE) Blood Type O POSITIVE Antibody Screen NEGATIVE Med Orders - Current: Current Medications Acetaminophen (Acetaminophen 500 Mg Tab) 500 mg PO Q4H PRN PRN Reason: Pain (mild 1-3) Acetaminophen (Acetaminophen 500 Mg Tab) 1,000 mg PO Q4H PRN PRN Reason: Pain (mild 1-3) Benzocaine/Menthol (Benzocaine/Menthol 20%-0.5% [place] 78 Gm Cannister) 78 gm TOP ASDIRECTED PRN PRN Reason: Perineal Comfort Measure Bisacodyl (Bisacodyl 10 Mg Supp) 10 mg RECTAL ONETIME PRN PRN Reason: Constipation Docusate Sodium (Docusate Sodium 100 Mg Cap) 100 mg PO Q12H PRN PRN Reason: Constipation Emollient Ointment (Lanolin 100% Cream 7 Gm Tube) 0 gm TOP ASDIRECTED PRN PRN Reason: Sore Nipples Ibuprofen (Ibuprofen 400 Mg Tab) 400 mg PO Q4H PRN PRN Reason: Pain (mild 1-3) Ibuprofen (Ibuprofen 800 Mg Tab) 800 mg PO Q6H PRN PRN Reason: Cramping Oxycodone HCl (Oxycodone 5 Mg Tab) 5 mg PO Q2H PRN PRN Reason: Pain (severe 7-10) Sodium Chloride (Sodium Chloride 0.9% 10 Ml Syringe) 10 ml FLUSH ASDIRECTED PRN PRN Reason: Keep Vein Open Sodium Chloride (Sodium Chloride 0.9% 2.5 Ml Syringe) 2.5 ml FLUSH ASDIRECTED PRN PRN Reason: Keep Vein Open Sodium Chloride (Sodium Chloride 0.9% 20 Ml Sdv) 10 ml IV ASDIRECTED PRN PRN Reason: IV Use Witch Michelle (Witch Michelle Medicated Pads 40/Jar) 1 pad TOP ASDIRECTED PRN PRN Reason: comfort care Discontinued Medications Butorphanol Tartrate (Butorphanol 1 Mg/Ml Sdv) 1 mg IVPUSH Q1H PRN PRN Reason: Pain (severe 7-10) Carboprost Tromethamine (Carboprost Tromethamine 250 Mcg/1 Ml Amp) 250 mcg IM ASDIRECTED PRN PRN Reason: Post Hemorrhage Fentanyl (Fentanyl 100 Mcg/2 Ml Sdv) Confirm Administered Dose 100 mcg .ROUTE .[facility]-MED ONE Stop: 11/18/21 03:38 Oxytocin/Sodium Chloride (Oxytocin 30 Unit In Ns 0.9% 500 Ml Premix) 30 unit in 500 mls @ 500 mls/hr IV TITRATE JESENIA Tranexamic Acid 1,000 mg/ (Sodium Chloride) 110 mls @ 660 mls/hr IV ONETIME PRN PRN Reason: Bleeding Lactated Ringer's (Ringers, Lactated) 1,000 mls @ 150 mls/hr IV ASDIRECTED JESENIA Ropivacaine (Naropin 0.2%) Confirm Administered Dose 100 mls @ as directed .ROUTE .STK-MED ONE Stop: 11/18/21 03:22 Lidocaine (Lidocaine 2% 5 Ml Sdv) Confirm Administered Dose 5 ml .ROUTE .STK-MED ONE Stop: 11/18/21 03:38 Lidocaine HCl (Lidocaine 1% 50 Ml Mdv) 50 ml INJECT ONETIME PRN PRN Reason: Laceration repair Lidocaine HCl (Lidocaine 1% 20 Ml Mdv) Confirm Administered Dose 20 ml .ROUTE .STK-MED ONE Stop: 11/18/21 03:44 Methylergonovine Maleate (Methylergonovine 0.2 Mg/1 Ml Amp) 0.2 mg IM ASDIRECTED PRN PRN Reason: Post Hemorrhage Misoprostol (Misoprostol 200 Mcg Tab) 200 mcg PO ONETIME PRN PRN Reason: Post Hemorrhage Nalbuphine HCl (Nalbuphine 10 Mg/1 Ml Vial) 10 mg IVPUSH Q1H PRN PRN Reason: Pain (severe 7-10) Ondansetron HCl (Ondansetron 4 Mg/2 Ml Sdv) 4 mg IVPUSH Q4H PRN PRN Reason: Nausea/Vomiting Sterile Water (Water For Irrigation,Sterile 1,000 Ml Container) 1,000 ml IRR ASDIRECTED PRN PRN Reason: delivery - Problem List Review Problem List Initiated/Reviewed/Updated: Yes - My Orders Last 24 Hours: My Active Orders 11/18/21 02:15 RPR (SYPHILIS SERO) W/ RFLX [REF] Routine 11/18/21 02:28 Insert Urinary Catheter [OM.PC] Routine Sodium Chloride 0.9% [Normal Saline] 10 ml IV ASDIRECTED PRN Sodium Chloride 0.9% [Saline Flush] 10 ml FLUSH ASDIRECTED PRN Sodium Chloride 0.9% [Saline Flush] 2.5 ml FLUSH ASDIRECTED PRN DVT/VTE Prophylaxis Reflex [OM.PC] Routine Resuscitation Status Routine 11/18/21 02:29 Peripheral IV Insertion Adult [OM.PC] Routine 11/18/21 02:31 Antiembolic Devices [RC] .Routine Urinary Catheter Assessment [RC] ASDIRECTED VTE/DVT Education [RC] PER UNIT ROUTINE 11/18/21 04:04 Acetaminophen [Tylenol Extra Strength] 1,000 mg PO Q4H PRN Acetaminophen [Tylenol Extra Strength] 500 mg PO Q4H PRN Benzocaine/Menthol [Dermoplast Pain Relief 20%-0.5% [place]] 78 gm TOP ASDIRECTED PRN Docusate Sodium [Colace] 100 mg PO Q12H PRN Ibuprofen [Motrin] 400 mg PO Q4H PRN Ibuprofen [Motrin] 800 mg PO Q6H PRN Lanolin [Lansinoh HPA] See Dose Instructions TOP ASDIRECTED PRN bisacodyL [Dulcolax] 10 mg RECTAL ONETIME PRN oxyCODONE 5 mg PO Q2H PRN witch Michelle [Tucks] 1 pad TOP ASDIRECTED PRN 11/18/21 04:05 Patient Status [ADT] Routine May Shower [RC] ASDIRECTED Up ad Ruth [RC] ASDIRECTED Vital Signs [RC] PER UNIT ROUTINE Assess Lochia [WOMSER] Per Unit Routine Assess Uterine Involution [WOMSER] Per Unit Routine Peripheral IV Discontinue [OM.PC] Routine 11/18/21 04:06 Perineal Care [OM.PC] Per Unit Routine 11/18/21 Breakfast Regular Diet [DIET] 11/19/21 05:11 HEMOGLOBIN/HEMATOCRIT,HH [HEME] Timed - Plan Plan:: 26yo at 38w5d presenting with SROM and active labor. Reassuring maternal and status. - Patient of [facility] - Grossly ruptured with clear fluid at 0122, 7cm dilated. - Will admit to L&D, CBC, T&S, RPR, COVID19 test - O+, rubella immune - GBS negative - Pain meds and epidural PRN Expectant management, will monitor closely
--- NOTE | 2021-11-18 05:07 | PCM.PREANE ---
Preanesthetic Assessment - Procedure Proposed Procedure: Labor epidural - Anesthesia/Transfusion/Family Hx Anesthesia History: Prior Anesthesia Without Reaction Family History of Anesthesia Reaction: No Transfusion History: No Prior Transfusion(s) - Review of Systems General: No Symptoms Pulmonary: No Symptoms Cardiovascular: No Symptoms Gastrointestinal: No Symptoms Neurological: No Symptoms Other: Reports: None - Physical Assessment NPO Status Date: 11/18/21 NPO Status Time: 02:00 Height: 1.63 m Weight: 84.368 kg ASA Class: 2 Mental Status: Alert & Oriented x3 Airway Class: Mallampati = 2 Dentition: Reports: Normal Dentition Thyro-Mental Finger Breadths: 3 Mouth Opening Finger Breadths: 3 ROM/Head Extension: Full Lungs: Clear to Auscultation, Normal Respiratory Effort Cardiovascular: Regular Rate, Regular Rhythm - Lab Values: Laboratory Last Values WBC 8.79 K/uL (4.0-11.0) 11/18/21 02:15 RBC 4.28 M/uL (4.30-5.90) L 11/18/21 02:15 Hgb 11.0 g/dL (12.0-16.0) L 11/18/21 02:15 Hct 31.5 % (36.0-46.0) L 11/18/21 02:15 MCV 73.6 fL (80.0-98.0) L 11/18/21 02:15 MCH 25.7 pg (27.0-32.0) L 11/18/21 02:15 MCHC 34.9 g/dL (31.0-37.0) 11/18/21 02:15 RDW Std Deviation 36.5 fl (28.0-62.0) 11/18/21 02:15 RDW Coeff of Carola 14 % (11.0-15.0) 11/18/21 02:15 Plt Count 214 K/uL (150-400) 11/18/21 02:15 MPV 10.80 fL (7.40-12.00) 11/18/21 02:15 Nucleated RBC % 0.0 /100WBC 11/18/21 02:15 Nucleated RBCs # 0 K/uL 11/18/21 02:15 SARS-CoV-2 RNA (CATIE) NEGATIVE (NEGATIVE) 11/18/21 02:25 Blood Type O POSITIVE 11/18/21 02:15 Antibody Screen NEGATIVE 11/18/21 02:15 - Allergies Allergies/Adverse Reactions: Allergies Allergy/AdvReac Type Severity Reaction Status Date / Time No Known Allergies Allergy Verified 04/17/20 23:42 - Blood Blood Available: Yes Product(s) Available: PRBC (Type and screem) - Anesthesia Plan Pre-Op Medication Ordered: None - Acknowledgements Anesthesia Type Planned: Epidural Pt an Appropriate Candidate for the Planned Anesthesia: Yes Alternatives and Risks of Anesthesia Discussed w Pt/Guardian: Yes Pt/Guardian Understands and Agrees with Anesthesia Plan: Yes PreAnesthesia Questionnaire HEENT History: Reports: None Cardiovascular History: Reports: None Respiratory History: Reports: None Gastrointestinal History: Reports: GERD Genitourinary History: Reports: None [employer] History: Reports: Musculoskeletal History: Reports: None Neurological History: Reports: None Psychiatric History: Reports: None Endocrine/Metabolic History: Reports: None Hematologic History: Reports: Anemia Immunologic History: Reports: None Oncologic (Cancer) History: Reports: None Dermatologic History: Reports: None - Infectious Disease History Infectious Disease History: Reports: None - HOME MEDS Home Medications: Home Meds . [No Known Home Meds] 04/17/20 [History] - CURRENT (IN HOUSE) MEDS Current Meds: Current Medications Acetaminophen (Acetaminophen 500 Mg Tab) 500 mg PO Q4H PRN PRN Reason: Pain (mild 1-3) Acetaminophen (Acetaminophen 500 Mg Tab) 1,000 mg PO Q4H PRN PRN Reason: Pain (mild 1-3) Benzocaine/Menthol (Benzocaine/Menthol 20%-0.5% [place] 78 Gm Cannister) 78 gm TOP ASDIRECTED PRN PRN Reason: Perineal Comfort Measure Bisacodyl (Bisacodyl 10 Mg Supp) 10 mg RECTAL ONETIME PRN PRN Reason: Constipation Docusate Sodium (Docusate Sodium 100 Mg Cap) 100 mg PO Q12H PRN PRN Reason: Constipation Emollient Ointment (Lanolin 100% Cream 7 Gm Tube) 0 gm TOP ASDIRECTED PRN PRN Reason: Sore Nipples Ibuprofen (Ibuprofen 400 Mg Tab) 400 mg PO Q4H PRN PRN Reason: Pain (mild 1-3) Ibuprofen (Ibuprofen 800 Mg Tab) 800 mg PO Q6H PRN PRN Reason: Cramping Oxycodone HCl (Oxycodone 5 Mg Tab) 5 mg PO Q2H PRN PRN Reason: Pain (severe 7-10) Sodium Chloride (Sodium Chloride 0.9% 10 Ml Syringe) 10 ml FLUSH ASDIRECTED PRN PRN Reason: Keep Vein Open Sodium Chloride (Sodium Chloride 0.9% 2.5 Ml Syringe) 2.5 ml FLUSH ASDIRECTED PRN PRN Reason: Keep Vein Open Sodium Chloride (Sodium Chloride 0.9% 20 Ml Sdv) 10 ml IV ASDIRECTED PRN PRN Reason: IV Use Witch Michelle (Witch Michelle Medicated Pads 40/Jar) 1 pad TOP ASDIRECTED PRN PRN Reason: comfort care Discontinued Medications Butorphanol Tartrate (Butorphanol 1 Mg/Ml Sdv) 1 mg IVPUSH Q1H PRN PRN Reason: Pain (severe 7-10) Carboprost Tromethamine (Carboprost Tromethamine 250 Mcg/1 Ml Amp) 250 mcg IM ASDIRECTED PRN PRN Reason: Post Hemorrhage Fentanyl (Fentanyl 100 Mcg/2 Ml Sdv) Confirm Administered Dose 100 mcg .ROUTE .STK-MED ONE Stop: 11/18/21 03:38 Oxytocin/Sodium Chloride (Oxytocin 30 Unit In Ns 0.9% 500 Ml Premix) 30 unit in 500 mls @ 500 mls/hr IV TITRATE JESENIA Tranexamic Acid 1,000 mg/ (Sodium Chloride) 110 mls @ 660 mls/hr IV ONETIME PRN PRN Reason: Bleeding Lactated Ringer's (Ringers, Lactated) 1,000 mls @ 150 mls/hr IV ASDIRECTED [facility] Ropivacaine (Naropin 0.2%) Confirm Administered Dose 100 mls @ as directed .ROUTE .STK-MED ONE Stop: 11/18/21 03:22 Lidocaine (Lidocaine 2% 5 Ml Sdv) Confirm Administered Dose 5 ml .ROUTE .STK-MED ONE Stop: 11/18/21 03:38 Lidocaine HCl (Lidocaine 1% 50 Ml Mdv) 50 ml INJECT ONETIME PRN PRN Reason: Laceration repair Lidocaine HCl (Lidocaine 1% 20 Ml Mdv) Confirm Administered Dose 20 ml .ROUTE .STK-MED ONE Stop: 11/18/21 03:44 Methylergonovine Maleate (Methylergonovine 0.2 Mg/1 Ml Amp) 0.2 mg IM ASDIRECTED PRN PRN Reason: Post Hemorrhage Misoprostol (Misoprostol 200 Mcg Tab) 200 mcg PO ONETIME PRN PRN Reason: Post Hemorrhage Nalbuphine HCl (Nalbuphine 10 Mg/1 Ml Vial) 10 mg IVPUSH Q1H PRN PRN Reason: Pain (severe 7-10) Ondansetron HCl (Ondansetron 4 Mg/2 Ml Sdv) 4 mg IVPUSH Q4H PRN PRN Reason: Nausea/Vomiting Sterile Water (Water For Irrigation,Sterile 1,000 Ml Container) 1,000 ml IRR ASDIRECTED PRN PRN Reason: delivery
--- NOTE | 2021-11-18 05:13 | PCM.POSTAN ---
POST ANESTHESIA ASSESSMENT - MENTAL STATUS Mental Status: Alert, Oriented - RESPIRATORY Respiratory Status: Respiratory Rate WNL, Airway Patent, O2 Saturation Stable - CARDIOVASCULAR CV Status: Pulse Rate WNL, Blood Pressure Stable - GASTROINTESTINAL GI Status: No Symptoms - POST OP HYDRATION Hydration Status: Adequate & Stable
--- NOTE | 2021-11-18 05:13 | PCM.SN.2 ---
- Pre-Procedure Checklist Attending Provider Aware: Yes Chart Reviewed: Yes Consent Signed: Yes Labs Reviewed: Yes VS/FHR Reviewed: Yes Patient Identification Confirmation Method: Reports: Chart Visual, Verbal Patient Pt an Appropriate Candidate for the Planned Anesthesia: Yes Alternatives and Risks of Anesthesia Discussed w Pt/Guardian: Yes - Procedure Procedure Start Date: 11/18/21 Procedure Start Time: 03:[address]: Reports: Blood Pressure, Heart Rate, SPO2 Functional IV: Yes Bolus Infused (fluid type and amount): 1000 ml LR Safety Measures: Reports: Patient Identified, Procedure Verified, Site Verified, Procedure Time Out Patient Position: Reports: Sitting Prep: Reports: Betadine x3 Local Anesthetic: Reports: Intradermal Wheal w Lidocaine 1% (3 ml) Regional Placement Level: Reports: L3-4 Needle: Reports: 17 g Touhy Approach: Reports: Midline Technique: Reports: RUBENS Glass Syringe RUBENS Needle Depth (cm): 7 cm Parasthesia: Reports: None Fluid Obtained: Reports: None Catheter Depth at Skin (cm): 15 cm Test Dose Time: 03:24 Test Dose Medication: Reports: Lidocaine 1.5% w Epinephrine 1:200,000 (5 ml) Test Dose Response: Reports: Negative Loading Dose Time: 03:34 Loading Dose Medication: 100 mcg Fentanyl and 2% Lidocaine PF Loading Dose Patient Position: 100 Mcg and 5 ml lidocaine Continuous Infusion Start Time: 03:30 (patient delivered before infusion could be started) Patient Position Post Placement: Reports: Supine Post-procedure Pain Level: unable to assess VS and FHR Monitored in Unit Post Placement: Yes Procedure End Date: 11/18/21 Procedure End Time: 04:05 Procedure Comment: Patient delivered just after catheter taped. However, surgeon desired to place sutures following delivery and loading dose of 100Mcg Fentanyl and 5 ml 2% lidocaine PF given for analgesia.
--- NOTE | 2021-11-18 06:58 | OR ---
SURGEON: Mark Pemberton MD DATE OF PROCEDURE: 11/18/2021 INDICATION FOR PROCEDURE: 26-year-old, G2, P 1-0-0-1, at 38 weeks and 5 days, who presented with spontaneous rupture of membranes and active labor. The patient called to Labor and Delivery reporting she had a large gush of clear fluid around 11:20 a.m., then began having strong regular contractions every 3 to 4 minutes. After presenting to Labor and Delivery, she was found to be grossly ruptured with clear amniotic fluid and was 7 cm dilated, category 1 tracing. She had care with [facility] this . She is GBS negative, otherwise had uncomplicated . The patient desired an epidural, which she received. Right after receiving the epidural, she felt urge to push and the head delivered spontaneously. PREOPERATIVE DIAGNOSES: 1. Mcleod intrauterine at 38 weeks and 5 days. 2. Precipitous delivery. POSTOPERATIVE DIAGNOSES: 1. Mcleod intrauterine at 38 weeks and 5 days. 2. Precipitous delivery. PROCEDURES PERFORMED: Normal spontaneous vaginal delivery, repair of second-degree laceration. ANESTHESIA: Epidural and local anesthesia. ANESTHESIOLOGISTS: Dr. Timo Joseph and Hunter Hector, [place] FINDINGS: Viable male . score and weight were pending. ESTIMATED BLOOD LOSS: 300 mL. DESCRIPTION OF PROCEDURE: I was called to the patient's room. The head had already delivered and restituted ROT. Anterior shoulder delivered easily followed by posterior shoulder and remaining body. No nuchal cord was noted. The baby was placed on maternal chest and evaluated by awaiting nursery staff. The baby was pink, crying vigorously, and moving all extremities immediately after delivery. The umbilical cord was clamped and cut after about 3 minutes and no longer pulsating. The umbilical cord gases were obtained. The placenta was removed with gentle traction on the umbilical cord, it was found to be intact with 3- vessel cord. The vagina and perineum were examined, and she had a second-degree laceration. The patient did not have complete pain control since the epidural was just placed, 7 mL of 1% lidocaine with epinephrine was injected for local anesthesia. Second-degree laceration was repaired with 3-0 Vicryl in usual fashion. Hemostasis was confirmed after the procedure. The patient tolerated the procedure well and was given care instructions. AUBRIE ALVARADO /[id number]
[2021-11-19 05:02] VITALS: PULSE 95
--- NOTE | 2021-11-19 07:09 | PCM48HPAN ---
Post Anesthesia Note - EVALUATION WITHIN 48HRS OF ANESTHETIC Vital Signs in Normal Range: Yes Patient Participated in Evaluation: Yes Respiratory Function Stable: Yes Airway Patent: Yes Cardiovascular Function Stable: Yes Hydration Status Stable: Yes Pain Control Satisfactory: Yes Nausea and Vomiting Control Satisfactory: Yes Mental Status Recovered: Yes Vital Signs: Last Vital Signs Temp 36.2 C 11/19/21 04:20 Pulse 95 11/19/21 04:20 Resp 18 11/19/21 04:20 BP 98/55 L 11/19/21 04:20 Pulse Ox 95 11/19/21 04:20
[2021-11-19 07:46] VITALS: BP 102/62
--- NOTE | 2021-11-19 10:45 | PCM.PNPP ---
- General Info Date of Service: 11/19/21 Admission Dx/Problem (Free Text): Admission Diagnosis/Problem Admission Diagnosis/Problem Subjective Update: Resting in bed, holding . C/o contraction pain while , otherwise pain well controlled. Ambulating and voiding without difficulty. Lochia decreasing. Tolerating regular diet. going well, however, painful latch. - General Info Date of Service: 11/19/21 - Patient Data Vital Signs - Most Recent: Last Vital Signs Temp 97.1 F 11/19/21 07:45 Pulse 95 11/19/21 04:20 Resp 15 11/19/21 07:45 BP 102/62 11/19/21 07:45 Pulse Ox 97 11/19/21 07:45 Weight - Most Recent: 186 lb Lab Results - Last 24 Hours: Laboratory Results - last 24 hr 11/18/21 11/19/21 Range/Units 03:30 05:32 Hgb 10.4 L (12.0-16.0) g/dL Hct 29.7 L (36.0-46.0) % Cord ABG pH 7.299 (7.18-7.38) Cord ABG Base Excess -6 (-10--2) Cord VBG pH 7.239 L (7.25-7.45) Cord VBG Base Excess -5 (-10--2) Med Orders - Current: Current Medications Acetaminophen (Acetaminophen 500 Mg Tab) 500 mg PO Q4H PRN PRN Reason: Pain (mild 1-3) Acetaminophen (Acetaminophen 500 Mg Tab) 1,000 mg PO Q4H PRN PRN Reason: Pain (mild 1-3) Benzocaine/Menthol (Benzocaine/Menthol 20%-0.5% [place] 78 Gm Cannister) 78 gm TOP ASDIRECTED PRN PRN Reason: Perineal Comfort Measure Last Admin: 11/18/21 05:51 Dose: 1 canister Documented by: Bisacodyl (Bisacodyl 10 Mg Supp) 10 mg RECTAL ONETIME PRN PRN Reason: Constipation Docusate Sodium (Docusate Sodium 100 Mg Cap) 100 mg PO Q12H PRN PRN Reason: Constipation Last Admin: 11/18/21 16:13 Dose: 100 mg Documented by: Emollient Ointment (Lanolin 100% Cream 7 Gm Tube) 0 gm TOP ASDIRECTED PRN PRN Reason: Sore Nipples Last Admin: 11/18/21 05:51 Dose: 1 tube Documented by: Ibuprofen (Ibuprofen 400 Mg Tab) 400 mg PO Q4H PRN PRN Reason: Pain (mild 1-3) Ibuprofen (Ibuprofen 800 Mg Tab) 800 mg PO Q6H PRN PRN Reason: Cramping Oxycodone HCl (Oxycodone 5 Mg Tab) 5 mg PO Q2H PRN PRN Reason: Pain (severe 7-10) Sodium Chloride (Sodium Chloride 0.9% 10 Ml Syringe) 10 ml FLUSH ASDIRECTED PRN PRN Reason: Keep Vein Open Sodium Chloride (Sodium Chloride 0.9% 2.5 Ml Syringe) 2.5 ml FLUSH ASDIRECTED PRN PRN Reason: Keep Vein Open Sodium Chloride (Sodium Chloride 0.9% 20 Ml Sdv) 10 ml IV ASDIRECTED PRN PRN Reason: IV Use Witch Michelle (Witch Michelle Medicated Pads 40/Jar) 1 pad TOP ASDIRECTED PRN PRN Reason: comfort care Last Admin: 11/18/21 05:50 Dose: 1 tub Documented by: Discontinued Medications Butorphanol Tartrate (Butorphanol 1 Mg/Ml Sdv) 1 mg IVPUSH Q1H PRN PRN Reason: Pain (severe 7-10) Carboprost Tromethamine (Carboprost Tromethamine 250 Mcg/1 Ml Amp) 250 mcg IM ASDIRECTED PRN PRN Reason: Post Hemorrhage Fentanyl (Fentanyl 100 Mcg/2 Ml Sdv) Confirm Administered Dose 100 mcg .ROUTE .STK-MED ONE Stop: 11/18/21 03:38 Oxytocin/Sodium Chloride (Oxytocin 30 Unit In Ns 0.9% 500 Ml Premix) 30 unit in 500 mls @ 500 mls/hr IV TITRATE JESENIA Tranexamic Acid 1,000 mg/ (Sodium Chloride) 110 mls @ 660 mls/hr IV ONETIME PRN PRN Reason: Bleeding Lactated Ringer's (Ringers, Lactated) 1,000 mls @ 150 mls/hr IV ASDIRECTED JESENIA Ropivacaine (Naropin 0.2%) Confirm Administered Dose 100 mls @ as directed .ROUTE .STK-MED ONE Stop: 11/18/21 03:22 Lidocaine (Lidocaine 2% 5 Ml Sdv) Confirm Administered Dose 5 ml .ROUTE .STK-MED ONE Stop: 11/18/21 03:38 Lidocaine HCl (Lidocaine 1% 50 Ml Mdv) 50 ml INJECT ONETIME PRN PRN Reason: Laceration repair Lidocaine HCl (Lidocaine 1% 20 Ml Mdv) Confirm Administered Dose 20 ml .ROUTE .STK-MED ONE Stop: 11/18/21 03:44 Methylergonovine Maleate (Methylergonovine 0.2 Mg/1 Ml Amp) 0.2 mg IM ASDIRECTED PRN PRN Reason: Post Hemorrhage Misoprostol (Misoprostol 200 Mcg Tab) 200 mcg PO ONETIME PRN PRN Reason: Post Hemorrhage Nalbuphine HCl (Nalbuphine 10 Mg/1 Ml Vial) 10 mg IVPUSH Q1H PRN PRN Reason: Pain (severe 7-10) Ondansetron HCl (Ondansetron 4 Mg/2 Ml Sdv) 4 mg IVPUSH Q4H PRN PRN Reason: Nausea/Vomiting Sterile Water (Water For Irrigation,Sterile 1,000 Ml Container) 1,000 ml IRR ASDIRECTED PRN PRN Reason: delivery - Interaction Infant Disposition, : [place] in Room with Family Infant Interaction: Holding Feeding: Breastfed Infant; Nursed Well Support Person: Significant Other - Recovery Exam Fundal Tone: Firm Fundal Level: At Umbilicus Fundal Placement: Midline Lochia Amount: Scant Lochia Color: Rubra/Red Perineum Description: Intact, Minimal Bruising/Swelling, Redness Other Perinuem Description: 2nd degree laceration Episiotomy/Laceration: Approximated Bladder Status: Voiding Urinary Elimination: Voided - Exam General: Alert Lungs: Normal Respiratory Effort Cardiovascular: Regular Rate GI/Abdominal Exam: Soft, Non-Tender Extremities: Normal Range of Motion, Non-Tender, No Pedal Edema Skin: Warm, Dry, Intact Neurological: No New Focal Deficit Psy/Mental Status: Normal Mood - Problem List Review Problem List Initiated/Reviewed/Updated: Yes - Plan Plan:: 26yo G2 now P2 PPD1 s/p - O+, rubella immune - GBS negative - Meeting milestones. Dispo: stable. Anticipate discharge today pending maternal/ status. Discharge instructions reviewed. Patient to return to clinic for appointment in 4-6 weeks.
== END 2021-11-19 11:30 | disposition home or self-care (01) | DRG 560 ==
LOC: MW.OBCHECK 01:54 → MW.OB 01:55 → MW.OBCHECK 02:29 → OBSVTOIN 03:23 → MW.OB 05:58
PROVIDERS: ADMIT Obstetrics & Gynecology; ATTEND Obstetrics & Gynecology
PROC: 10E0XZZ Delivery of Products of Conception, External Approach (ICD-10-PCS; principal; 2021-11-18)
PROC: 10907ZC Drainage of Amniotic Fluid, Therapeutic from Products of Conception, Via Natural or Artificial Opening (ICD-10-PCS; 2021-11-18)
PROC: 3E0R3BZ Introduction of Anesthetic Agent into Spinal Canal, Percutaneous Approach (ICD-10-PCS; 2021-11-18)
PROC: 0KQM0ZZ Repair Perineum Muscle, Open Approach (ICD-10-PCS; 2021-11-18)
PROC: 00HU33Z Insertion of Infusion Device into Spinal Canal, Percutaneous Approach (ICD-10-PCS; 2021-11-18)
DX: O70.1 Second degree perineal laceration during delivery (principal); Z3A.38 38 weeks gestation of pregnancy; Z37.0 Single live birth; O62.3 Precipitate labor; Z20.822 Contact with and (suspected) exposure to COVID-19
CPT/HCPCS: 36415; 59025; 59409; 82803; 85014; 85018; 85027; 86592; 86850; 86900; 86901; A9270-GY; J3010; U0002

== ENCOUNTER 2022-09-22 18:30 | Emergency (ER) | payer BC ==
[2022-09-22] MEDS ORDERED: Ibuprofen 600 MG Tab PO ONE (23:27)
[2022-09-22] MEDS ORDERED: cefTRIAXone 1 GM Vial IM ONE (23:27)
[2022-09-22] MEDS: Lidocaine 1% 2 ML ONE ×2 (23:42→23:44)
[2022-09-22] MEDS ORDERED: Lidocaine 1% PF 2 ML SDV INJECT ONE (23:44)
[2022-09-23 00:02] VITALS: BP 100/60; PULSE 90
== END 2022-09-23 00:01 | disposition home or self-care (01) ==
LOC: MW.ED 18:30
DX: N39.0 Urinary tract infection, site not specified (principal)
CPT/HCPCS: 74176; 81001; 96372; 99284; A9270; J0696